=== PATIENT | female | born 1940 | race Caucasian/White ===

== ENCOUNTER 2021-04-21 13:53 | Outpatient (CLI) | payer MEDICARE, BC | END 2021-04-21 13:54 | disposition home or self-care (01) | LOC: CSHULT 13:53 | PROVIDERS: ATTEND Urology | DX: N20.0 Calculus of kidney (principal); R58 Hemorrhage, not elsewhere classified | CPT/HCPCS: 74018 ==

== ENCOUNTER 2021-07-08 16:00 | Outpatient (CLI) | payer MEDICARE, BC | END 2021-07-08 16:01 | disposition home or self-care (01) | LOC: CSHULT 16:00 | PROVIDERS: ATTEND Urology | DX: N20.2 Calculus of kidney with calculus of ureter (principal) | CPT/HCPCS: 74018; 76770 ==

== ENCOUNTER 2024-01-16 10:21 | Outpatient (CLI) | payer BC, MEDICARE | END 2024-01-16 10:22 | disposition home or self-care (01) | LOC: CSHMAMMO 10:21 | PROVIDERS: ATTEND Internal Medicine | DX: Z12.31 Encounter for screening mammogram for malignant neoplasm of breast (principal); Z80.3 Family history of malignant neoplasm of breast; Z91.89 Other specified personal risk factors, not elsewhere classified | CPT/HCPCS: 77063; 77067 ==